=== PATIENT | male | born 1970 | race Caucasian/White ===

== ENCOUNTER 2019-08-17 18:50 | Inpatient (IN) | payer MEDICAID ==
[~2019-08-17] VITALS: Ht 165.1 cm; Wt 65.8 kg
[2019-08-18] VITALS (10 sets, daily range): BP systolic 112–121; BP diastolic 60–76
[2019-08-18 00:03] LABS: MEAN CORPUSCULAR HEMOGLOBIN 12.2 pg (28.0-32.0); MEAN CORPUSCULAR VOLUME 50.1 fL (80.0-94.0); MEAN PLATELET VOLUME 8.4 fl (7.4-10.4); PLATELET 239 x1000/uL (130-400); RED BLOOD CELL COUNT 3.79 mill/uL (4.7-6.1); RED CELL DISTRIBUTION WIDTH 24.4 % (11.6-14.6)
[2019-08-18 00:09] LABS: CHLORIDE 106 mEq/L (98-107)
[2019-08-18 00:17] LABS: HEMOGLOBIN. 4.6 g/dL (14.0-18.0)
[2019-08-18] MEDS ORDERED: ONDANSETRON HCL 4MG/2ML INJ IV PRN (01:00)
[2019-08-18] MEDS ORDERED: LORAZEPAM 2MG/ML CPJ IV PRN (01:00)
[2019-08-18] MEDS ORDERED: HYDROCODONE/ACETAMINOPHEN 10/325MG TABLET PO PRN (01:00)
[2019-08-18] MEDS ORDERED: CLONIDINE 0.1MG TABLET PO PRN (01:00)
[2019-08-18] MEDS ORDERED: GUAIFENESIN 200MG/10ML SUGAR FREE UDC PO PRN (01:00)
[2019-08-18] MEDS ORDERED: DIPHENHYDRAMINE 50MG/ML VIAL IV PRN (01:00)
[2019-08-18] MEDS ORDERED: ACETAMINOPHEN 325MG TABLET PO PRN (01:00)
[2019-08-18] MEDS ORDERED: DEXTROSE 50% WATER 50ML SYRINGE IV PRN (01:00)
[2019-08-18] MEDS ORDERED: IPRATROPIUM/ALBUTEROL 0.5-3(2.5)MG/3ML NEB NEB PRN (01:00)
[2019-08-18] MEDS ORDERED: MORPHINE SULFATE 2 MG/ML CPJ (NOT FOR IM USE) IV PRN (01:00)
[2019-08-18] MEDS ORDERED: DOCUSATE SODIUM 100MG CAPSULE PO PRN (01:00)
[2019-08-18] MEDS ORDERED: MAGNESIUM/ALUMINUM HYDROXIDE/SIMETHICONE 30ML UDC PO PRN (01:00)
[2019-08-18] MEDS ORDERED: HYDRALAZINE 20MG/ML VIAL IV PRN (01:00)
[2019-08-18 01:58] LABS: TOTAL IRON BINDING CAPACITY 595 ug/dL (250-450)
[2019-08-18 05:44] LABS: ATYPICAL LYMPHOCYTES 3
[2019-08-18 05:46] LABS: PLATELET ESTIMATE NORMAL
[2019-08-18 06:26] LABS: CREATINE KINASE 30 IU/L (39-308)
[2019-08-18 06:27] LABS: CREATINE KINASE MB FRACTION < 1.0 ng/mL (0.5-3.6)
[2019-08-18] MEDS: INSULIN LISPRO 100 UNITS/ML SUBCUT SCH ×4 (08:20→20:06)
[2019-08-18] MEDS: BLOOD SUGAR DIAGNOSTIC STRIP TEST SCH ×4 (08:46→20:06)
[2019-08-18] MEDS: FERROUS SULFATE 300MG/5ML UDC PO SCH ×2 (13:51→20:05)
[2019-08-18] MEDS: SODIUM CHLORIDE 0.9% INJ 3ML FLUSH IVF SCH ×2 (14:13→21:42)
[2019-08-18] MEDS ORDERED: SORBITOL 70% SOLN 30ML PO SCH ×2 (16:00→20:00)
[2019-08-18 16:37] LABS: HEMATOCRIT 31.5 % (42.0-52.0); HEMOGLOBIN 8.9 g/dL (14.0-18.0)
[2019-08-18 16:57] LABS: CREATINE KINASE 35 IU/L (39-308)
[2019-08-18 16:59] LABS: CREATINE KINASE MB FRACTION < 1.0 ng/mL (0.5-3.6)
[2019-08-18] MEDS: MESALAMINE 400 MG CAPSULE.DR PO SCH (18:53)
[2019-08-18] MEDS: PANTOPRAZOLE SODIUM 40 MG/VIAL IV SCH (20:05)
[2019-08-19] VITALS (12 sets, daily range): BP systolic 102–133; BP diastolic 59–86
[2019-08-19 01:32] LABS: HEMATOCRIT 34.6 % (42.0-52.0); HEMOGLOBIN 9.6 g/dL (14.0-18.0)
[2019-08-19] MEDS: SODIUM CHLORIDE 0.9% INJ 3ML FLUSH IVF SCH ×3 (05:27→21:20)
[2019-08-19 06:49] LABS: PROTHROMBIN TIME 10.6 sec (9.6-11.0)
[2019-08-19 07:08] LABS: HEMATOCRIT. 33.3 % (42.0-52.0); HEMOGLOBIN. 9.5 g/dL (14.0-18.0); MEAN CORPUSCULAR HEMOGLOBIN 17.4 pg (28.0-32.0); PLATELET 232 x1000/uL (130-400); RED BLOOD CELL COUNT 5.46 mill/uL (4.7-6.1); RED CELL DISTRIBUTION WIDTH 35.4 % (11.6-14.6)
[2019-08-19] MEDS: INSULIN LISPRO 100 UNITS/ML SUBCUT SCH ×4 (08:00→21:00)
[2019-08-19] MEDS: MESALAMINE 400 MG CAPSULE.DR PO SCH ×3 (08:00→18:28)
[2019-08-19] MEDS: BLOOD SUGAR DIAGNOSTIC STRIP TEST SCH ×4 (08:22→21:20)
[2019-08-19] MEDS: PANTOPRAZOLE SODIUM 40 MG/VIAL IV SCH ×2 (08:23→21:19)
[2019-08-19] MEDS: FERROUS SULFATE 300MG/5ML UDC PO SCH ×3 (08:23→16:52)
[2019-08-19 08:32] LABS: CHLORIDE 109 mEq/L (98-107)
[2019-08-19 08:45] LABS: LDL CHOLESTEROL 82 mg/dL (5-100)
[2019-08-19 08:46] LABS: HDL CHOLESTEROL 52 mg/dL (40-59)
[2019-08-19] MEDS ORDERED: FENTANYL CITRATE/PF 50MCG/ML 2ML VIAL IV PRN (12:18)
[2019-08-19] MEDS ORDERED: FENTANYL CITRATE/PF 50MCG/ML 2ML VIAL ONE (12:18)
[2019-08-19] MEDS ORDERED: MIDAZOLAM HCL 5 MG/5 ML VIAL ONE (12:18)
[2019-08-19] MEDS ORDERED: MIDAZOLAM HCL 5 MG/5 ML VIAL IV PRN (12:18)
[2019-08-20] VITALS (9 sets, daily range): BP systolic 93–116; BP diastolic 53–73
[2019-08-20 04:15] LABS: PLATELET ESTIMATE NORMAL
[2019-08-20] MEDS: SODIUM CHLORIDE 0.9% INJ 3ML FLUSH IVF SCH ×2 (05:50→14:49)
[2019-08-20] MEDS: INSULIN LISPRO 100 UNITS/ML SUBCUT SCH ×2 (08:00→13:00)
[2019-08-20] MEDS: BLOOD SUGAR DIAGNOSTIC STRIP TEST SCH ×2 (08:05→12:30)
[2019-08-20] MEDS: MESALAMINE 400 MG CAPSULE.DR PO SCH ×2 (08:29→13:39)
[2019-08-20] MEDS: FERROUS SULFATE 300MG/5ML UDC PO SCH ×2 (08:30→13:39)
[2019-08-23 09:09] LABS: SACCHAROMYCES CEREVISIAE IGG <20.0 Units (0.0-24.9); SACCHAROMYCES CEREVISIAE IGM <20.0 Units (0.0-24.9)
[2019-08-23 15:09] LABS: ATYPICAL pANCA <1:20 titer (Neg:<1:20)
== END 2019-08-20 15:50 | disposition home or self-care (01) | DRG 663 ==
LOC: ER 18:50 → 5EST 08-18 00:21 → ENRESERV 08-18 03:11
PROVIDERS: ADMIT Internal Medicine; ATTEND Internal Medicine
PROC: 30233N1 Transfusion of Nonautologous Red Blood Cells into Peripheral Vein, Percutaneous Approach (ICD-10-PCS; principal; 2019-08-18)
PROC: 0DB68ZX Excision of Stomach, Via Natural or Artificial Opening Endoscopic, Diagnostic (ICD-10-PCS; 2019-08-19)
PROC: 0DBM8ZX Excision of Descending Colon, Via Natural or Artificial Opening Endoscopic, Diagnostic (ICD-10-PCS; 2019-08-19)
PROC: 0DBN8ZX Excision of Sigmoid Colon, Via Natural or Artificial Opening Endoscopic, Diagnostic (ICD-10-PCS; 2019-08-19)
DX: D50.9 Iron deficiency anemia, unspecified (principal); K22.10 Ulcer of esophagus without bleeding; K51.90 Ulcerative colitis, unspecified, without complications; K29.60 Other gastritis without bleeding; K63.5 Polyp of colon; E11.9 Type 2 diabetes mellitus without complications; K44.9 Diaphragmatic hernia without obstruction or gangrene; K62.89 Other specified diseases of anus and rectum; Z79.899 Other long term (current) drug therapy
CPT/HCPCS: 36415; 71045; 74176; 80053; 80061; 82270; 82550; 82553; 82728; 82962; 83036; 83540; 83550; 83880; 84484; 85014; 85018; 85025; 86256; 86671; 86850; 86900; 86920; 87015; 87045; 87427; 87449; 87493; 88305; 88313; 89055; 93005; 93970; 96374; 99291; C9113; J1815; J2250; J3010; P9016